=== PATIENT | female | born 1995 | race Caucasian/White ===

== ENCOUNTER → 2024-05-20 | Outpatient (CLI) | payer MEDICAID ==
[2024-05-20 08:11] LABS: Basophils # (auto) 0.1 10 ^3/uL (0-0.2); Basophils % (auto) 0.6 % (0.0-2.0); Eosinophils # (auto) 0.2 10 ^3/uL (0-0.8); Eosinophils % (auto) 1.4 % (0.0-7.0); Hematocrit 41.8 % (36.0-46.0); Lymphocytes # (auto) 3.1 10 ^3/uL (0.4-5.4); Lymphocytes % (auto) 20.9 % (10.0-50.0); Mean Corpuscular Hemoglobin 28.8 pg (28.0-32.0); Mean Corpuscular Hgb Conc. 33.6 g/dL (32.0-36.0); Mean Corpuscular Volume 85.8 fL (80.0-100.0); Monocytes # (auto) 0.5 10 ^3/uL (0-1.3); Monocytes % (auto) 3.1 % (0.0-12.0); Neutrophils # (auto) 10.9 10 ^3/uL (1.6-8.6); Platelet Count (auto) 376 10^3/uL (140-450); Red Blood Cells 4.87 10^6/uL (4.0-5.20); White Blood Cell 14.7 10^3/uL (4.4-10.8)
[2024-05-20 08:33] LABS: Alanine Aminotransferase 18 U/L (7-40); Albumin 4.4 g/dL (3.2-4.8); Alkaline Phosphatase 109 U/L (46-116); Anion Gap 8 (5-15); BUN/Creatinine Ratio 14.1 (10.0-20.0); Blood Urea Nitrogen 10 mg/dL (9-23); Calcium 9.9 mg/dL (8.7-10.4); Carbon Dioxide 26 mmol/L (20-31); Chloride 104 mmol/L (98-107); Potassium 4.2 mmol/L (3.5-5.1); Sodium 138 mmol/L (136-145); Total Protein 7.5 g/dL (5.7-8.2); Triglycerides 112 mg/dL (< 150)
[2024-05-20 08:34] LABS: Bilirubin, Total 0.4 mg/dL (0.2-1.0); Cholesterol 168 mg/dL (< 200); HDL Cholesterol 55 mg/dL (40-59)
[2024-05-20 08:36] LABS: Thyroid Stimulating Hormone 1.3 uIU/mL (0.55-4.78)
[2024-05-20 08:39] LABS: Aspartate Aminotransferase 12 U/L (13-40); Glucose 112 mg/dL (74-106); LDL Cholesterol 109 mg/dL (< 100)
[2024-05-20 09:03] LABS: Beta HCG, Quantitative 86987.4 mIU/mL (1.5-4.2)
[2024-05-20 09:04] LABS: Cannabinoid Screen, Urine Pos (NEGATIVE)
[2024-05-20 09:05] LABS: Amphetamine Screen, Urine Neg (NEGATIVE); Barbiturate Scree,Urine Neg (NEGATIVE); Benzodiazephine Screen, Urine Neg (NEGATIVE); Cocaine Screen, Urine Neg (NEGATIVE); Opiate Scree,Urine Neg (NEGATIVE); Phencyclidine Screen, Urine Neg (NEGATIVE)
[2024-05-21 20:07] LABS: Chlamydia Trachomatis, NAA Negative (Negative); Neisseria gonorrhoeae, NAA Negative (Negative)
== END | disposition home or self-care (01) ==
LOC: LAB 07:31
DX: O23.40 Unspecified infection of urinary tract in pregnancy, unspecified trimester (principal); Z31.430 Encounter of female for testing for genetic disease carrier status for procreative management; Z36.0 Encounter for antenatal screening for chromosomal anomalies; N39.0 Urinary tract infection, site not specified; Z3A.00 Weeks of gestation of pregnancy not specified
CPT/HCPCS: 36415; 80053; 80061; 80307; 84439; 84443; 84702; 85025; 86703; 86762; 86850; 86900; 86901; 87086; 87340; 87902

== ENCOUNTER 2024-09-21 07:56 | Outpatient (CLI) | payer MEDICAID ==
[2024-09-21 08:23] LABS: Hematocrit 36.0 % (36.0-46.0); Hemoglobin 12.4 g/dL (12.2-16.2); Mean Corpuscular Hemoglobin 29.3 pg (28.0-32.0); Mean Corpuscular Volume 85.0 fL (80.0-100.0); Nucleated Red Blood Cells % 0.1 %
== END 2024-09-21 17:00 | disposition home or self-care (01) ==
LOC: LAB 07:56
DX: Z34.80 Encounter for supervision of other normal pregnancy, unspecified trimester (principal); Z3A.00 Weeks of gestation of pregnancy not specified
CPT/HCPCS: 36415; 83036; 85025

== ENCOUNTER 2024-09-28 07:32 | Outpatient (CLI) | payer MEDICAID | END 2024-09-28 17:00 | disposition home or self-care (01) | LOC: LAB 07:32 | DX: Z34.80 Encounter for supervision of other normal pregnancy, unspecified trimester (principal); Z3A.00 Weeks of gestation of pregnancy not specified | CPT/HCPCS: 82951 ==

== ENCOUNTER 2024-11-09 09:30 | Observation (INO) | payer MEDICAID ==
[2024-11-09 10:51] LABS: Hematocrit 37.0 % (36.0-46.0); Hemoglobin 12.4 g/dL (12.2-16.2); Mean Corpuscular Hemoglobin 27.2 pg (28.0-32.0); Mean Corpuscular Volume 80.8 fL (80.0-100.0); Nucleated Red Blood Cells % 0.0 %
[2024-11-09 11:05] LABS: Albumin 3.7 g/dL (3.2-4.8); Anion Gap 11 (5-15); Calcium 9.0 mg/dL (8.7-10.4); Carbon Dioxide 22 mmol/L (20-31); Chloride 107 mmol/L (98-107); Glucose 92 mg/dL (74-106); Potassium 4.0 mmol/L (3.5-5.1); Sodium 140 mmol/L (136-145); Total Protein 6.8 g/dL (5.7-8.2); Uric Acid 5.4 mg/dL (3.1-7.8)
[2024-11-09 11:06] LABS: Alanine Aminotransferase < 9 U/L (7-40); Alkaline Phosphatase 132 U/L (46-116); BUN/Creatinine Ratio 9.4 (10.0-20.0); Bilirubin, Total 0.3 mg/dL (0.2-1.0); Blood Urea Nitrogen < 5 mg/dL (9-23)
[2024-11-09 11:08] LABS: INR 0.97 (0.9-1.15); Partial Thromboplastin Time 27.9 SEC (24.5-34.5); Prothrombin Time 10.3 sec (9.3-11.8)
--- NOTE | 2024-11-09 11:25 | DVH ---
BIOPHYSICAL PROFILE HISTORY: R/O PIH TECHNIQUE: Multiple transabdominal real-time grayscale sonographic images through the gravid uterus of the fetus with duplex Doppler color flow and M-mode spectral analysis FINDINGS: BIOPHYSICAL PROFILE: breathing score: 2 movement score: 2 tone score: 2 Quantitative PEACE score: 2 (PEACE: 13.96 Cm.) Total score: 8 The cervix measures 3.7 cm and appears closed. Single live fetus in cephalic presentation. heart rate 154 beats per minute. Posterior placenta without previa or abruption IMPRESSION: Biophysical profile score: 8
[2024-11-09] MEDS ORDERED: PREN-96 PO (11:40)
[2024-11-09 12:53] LABS: Protein, Urine 26.8 mg/dL (1-14)
[2024-11-09 12:58] LABS: Urine Protein, UAD TRACE (Negative)
--- NOTE | 2024-11-09 13:58 | DVHDS2 ---
Physician Discharge Progress N Final Diagnosis: pih 32 wks Operations or Procedures: Operations or Procedures nst reactive reviwed,jarviso Condition on Discharge: Good Disposition: Home Discharge Instructions: Diet: Regular Activity: Light activity Medications: na Follow Up Care: Specialist: 1w Discharge Statement: "Patient was advised to return to the ER or call 911 if any headaches, dizziness, shortness of breath, chest pain, abdominal pain, bleeding, fevers, or worsening of medical condition. Patient was counseled about treatment plan, medications, possible side effects, patientverbalized understanding. All questions were answered to the best of my ability. This discharge took greater then 30 minutes in planning, reviewing documentation, counseling the patient, and discussing with other team members." Visit Coding OBGYN Date of Service: Nov 09, 2024 Billing Provider: GENESIS ROWE DO FISH AND GAME CLUB MANAGER Common Visit Codes: [id number] OBS CARE (HIGH) FISH AND GAME CLUB MANAGER Procedure Codes: 16701-26- NON-STRESS TEST GENESIS ROWE DO Nov 09, 2024 13:58
== END 2024-11-09 14:29 | disposition home or self-care (01) ==
LOC: LDRP 09:30
PROVIDERS: ADMIT Obstetrics & Gynecology; ATTEND Obstetrics & Gynecology
DX: O13.3 Gestational [pregnancy-induced] hypertension without significant proteinuria, third trimester (principal); Z3A.32 32 weeks gestation of pregnancy; Z98.890 Other specified postprocedural states
CPT/HCPCS: 36415; 59025; 76819; 80053; 81001; 81002; 82570; 84156; 84550; 85025; 85610; 85730; 94760; G0378

== ENCOUNTER 2024-11-15 06:38 | Observation (INO) | payer MEDICAID ==
[~2024-11-15 06:38] MED LIST: PREN-96 PO
--- NOTE | 2024-11-15 09:37 | DVH ---
BIOPHYSICAL PROFILE HISTORY: PIH Comparison Study: US BIOPHYSICAL PROFILE on DOS: 11/09/24 TECHNIQUE: Multiple real-time grayscale sonographic images through the gravid uterus of the fetus wi th duplex Doppler color flow and M-mode spectral analysis FINDINGS: BIOPHYSICAL PROFILE: breathing score: 2 movement score: 2 tone score: 2 Quantitative PEACE score: 2 (PEACE: 15 Cm.) Total score: 8 The cervix is not visualized Single live fetus in cephalic presentation. heart rate 133 beats per minute. Posterior/fundal placenta without previa or abruption IMPRESSION: Biophysical profile score: 8
[2024-11-15 10:28] LABS: Urine Protein, UAD Negative (Negative)
[2024-11-15 10:30] LABS: Protein, Urine 10.8 mg/dL (1-14)
[2024-11-15 10:35] LABS: Protein, Urine 16.2 mg/dL (1-14)
[2024-11-15 10:39] LABS: 24 Hr. Total Protein, Urine 232.2 mg/24 Hr (<149.1); Urine Total Volume, 24 Hours 2150.0 mL
--- NOTE | 2024-11-15 11:23 | DVHDS2 ---
Physician Discharge Progress N Final Diagnosis: testing for PIH/24 hour urine collection Operations or Procedures: Operations or Procedures 29yo IUP@33.3wks, denies GUZMAN/vision changes/RUQ pain VSS, normotensive, see CPN NST reactive FKC/PTL/PreE precautions reviewed Dr. Duarte consulted, agrees with POC. Laboratory Tests Test 11/15/24 09:00 Range/Units Urine Color Light-yellow Yellow Urine Clarity Turbid H Clear Urine pH 6.5 5.0-9.0 Urine Specific [place] 1.016 1.001-1.035 Urine Protein Negative Negative Urine Ketones 1+ H Negative Urine Blood Negative Negative /uL Urine Nitrite Negative Negative Urine Bilirubin Negative Negative Urine Urobilinogen Normal Negative mg/dL Urine Leukocyte Esterase Trace Negative /uL Urine RBC 1 0 - 4 /hpf Urine Microscopic WBC 2 0-5 /HPF Urine Squamous Epithelial Cells Mod <5 /hpf Urine Bacteria Few H None Seen /hpf Urine Mucus Few None Seen Urine Creatinine 77.59 30.0-125.0 mg/dL Urine Total Protein 24 Hour 232.2 <149.1 mg/24 Hr Urine Protein/Creatinine Ratio 0.21 Urine Glucose Normal Normal mg/dL Urine Total Protein 16.2 H 1-14 mg/dL Other Interventions Other Interventions [place] [address] Ph: [phone] DIAGNOSTIC IMAGING Diagnostic Imaging Report : [id number] Signed PATIENT: MADELINE MANSFIELD ACCT: [id number] UNIT: [id number] : 1995 LOC: [facility] ROOM / BED: [facility] / A AGE / SEX: 29 / F ADM STATUS: ADM IN SERVICE 0907 ORDERING PHYSICIAN: BETTY JARAMILLO CNM PROCEDURE(s): BPP - BIOPHYSICAL PROFILE REASON: [facility] ORDER NUMBER(s): [id number], ACCESSION NUMBER(s): [id number] BIOPHYSICAL PROFILE HISTORY: [facility] Comparison Study: US BIOPHYSICAL PROFILE on DOS: 11/09/24 TECHNIQUE: Multiple real-time grayscale sonographic images through the gravid uterus of the fetus with duplex Doppler color flow and M-mode spectral analysis FINDINGS: BIOPHYSICAL PROFILE: breathing score: 2 movement score: 2 tone score: 2 Quantitative PEACE score: 2 (PEACE: 15 Cm.) Total score: 8 The cervix is not visualized Single live fetus in cephalic presentation. heart rate 133 beats per minute. Posterior/fundal placenta without previa or abruption IMPRESSION: Biophysical profile score: 8 ATED BY: JC OCONNELL MD DICTATED DATE/TIME: 11/15/24933 SIGNED BY: JC OCONNELL MD SIGNED DATE/TIME: 11/15/24933 CC: Condition on Discharge: Stable Disposition: Home Discharge Instructions: Diet: Regular Activity: No Restrictions, As Tolerated Follow Up/Referral: Follow up weekly for NST/BPP Medications: see med list Follow Up Care: Specialist: f/u in 1 wk Discharge Statement: "Patient was advised to return to the ER or call 911 if any headaches, dizziness, shortness of breath, chest pain, abdominal pain, bleeding, fevers, or worsening of medical condition. Patient was counseled about treatment plan, medications, possible side effects, patientverbalized understanding. All questions were answered to the best of my ability. This discharge took greater then 30 minutes in planning, reviewing documentation, counseling the patient, and discussing with other team members." Visit Coding OBGYN Date of Service: Nov 15, 2024 Billing Provider: BETTY JARAMILLO CNM CLAMP FORKLIFT OPERATOR Common Visit Codes: 89992-[id number] OBS CARE (HIGH) CLAMP FORKLIFT OPERATOR Procedure Codes: 74256-74- NON-STRESS TEST BETTY JARAMILLO CNM Nov 15, 2024 11:23
== END 2024-11-15 11:28 | disposition home or self-care (01) ==
LOC: LDRP 08:56 → UNDOADMOB 08:56 → LDRP 09:08
PROVIDERS: ADMIT Obstetrics & Gynecology; ATTEND Obstetrics & Gynecology
DX: O13.3 Gestational [pregnancy-induced] hypertension without significant proteinuria, third trimester (principal); Z3A.33 33 weeks gestation of pregnancy; Z98.890 Other specified postprocedural states
CPT/HCPCS: 59025; 76819; 81001; 81002; 82570; 84156; 94760; G0378

== ENCOUNTER 2024-11-22 08:00 | Observation (INO) | payer MEDICAID ==
--- NOTE | 2024-11-22 09:19 | DVH ---
BIOPHYSICAL PROFILE HISTORY: PIH TECHNIQUE: Multiple transabdominal real-time grayscale sonographic images through the gravid uterus of the fetus with duplex Doppler color flow and M-mode spectral analysis FINDINGS: BIOPHYSICAL PROFILE: breathing score: 2 movement score: 2 tone score: 2 Quantitative PEACE score: 2 (PEACE: 15.4 Cm.) Total score: 8 The cervix not well visualized. Single live fetus in cephalic presentation. heart rate 135 beats per minute. Grade 2 posterior placenta without previa or abruption IMPRESSION: Biophysical profile score: 8
--- NOTE | 2024-11-22 10:32 | DVHDS2 ---
Physician Discharge Progress N Final Diagnosis: testing for BP monitoring/PIH previous C/S Operations or Procedures: Operations or Procedures 29yo iup@34.3wks VSS, normotensive, see CPN NST reactive BPP 09/16 fkc/ptl/PreE precautions reviewed Dr. Duarte consulted, plan to f/u in 1wk for NST/BPP Other Interventions Other Interventions [place] [address] Ph: [phone] DIAGNOSTIC IMAGING Diagnostic Imaging Report : [id number] Signed PATIENT: MADELINE MANSFIELD ACCT: [id number] UNIT: [id number] : 1995 LOC: [facility] ROOM / BED: TRIAGE1 / A AGE / SEX: 29 / F ADM STATUS: ADM IN SERVICE 4 ORDERING PHYSICIAN: BETTY JARAMILLO CNM PROCEDURE(s): BPP - BIOPHYSICAL PROFILE REASON: [facility] ORDER NUMBER(s): [id number], ACCESSION NUMBER(s): [id number] BIOPHYSICAL PROFILE HISTORY: PIH TECHNIQUE: Multiple transabdominal real-time grayscale sonographic images through the gravid uterus of the fetus with duplex Doppler color flow and M-mode spectral analysis FINDINGS: BIOPHYSICAL PROFILE: breathing score: 2 movement score: 2 tone score: 2 Quantitative PEACE score: 2 (PEACE: 15.4 Cm.) Total score: 8 The cervix not well visualized. Single live fetus in cephalic presentation. heart rate 135 beats per minute. Grade 2 posterior placenta without previa or abruption IMPRESSION: Biophysical profile score: 8 ATED BY: MIRNA VILLANUEVA MD DICTATED DATE/TIME: 11/22/24916 SIGNED BY: MIRNA VILLANUEVA MD SIGNED DATE/TIME: 11/22/24916 CC: Condition on Discharge: Stable Disposition: Home Discharge Instructions: Diet: Regular Activity: No Restrictions, As Tolerated Follow Up/Referral: Follow up Thursday at 8:00 am for NST/BPP. Medications: see med list Follow Up Care: Specialist: f/u in 1wk for NST/BPP Discharge Statement: "Patient was advised to return to the ER or call 911 if any headaches, dizziness, shortness of breath, chest pain, abdominal pain, bleeding, fevers, or worsening of medical condition. Patient was counseled about treatment plan, medications, possible side effects, patientverbalized understanding. All questions were answered to the best of my ability. This discharge took greater then 30 minutes in planning, reviewing documentation, counseling the patient, and discussing with other team members." Visit Coding OBGYN Date of Service: Nov 22, 2024 Billing Provider: BETTY JARAMILLO CNM MEDICAL RECORDS ASSISTANT Common Visit Codes: [id number] OBS CARE (HIGH) MEDICAL RECORDS ASSISTANT Procedure Codes: 41736-27- NON-STRESS TEST BETTY JARAMILLO CNM Nov 22, 2024 10:32
== END 2024-11-22 10:03 | disposition home or self-care (01) ==
LOC: LDRP 08:00
PROVIDERS: ADMIT Obstetrics & Gynecology; ATTEND Obstetrics & Gynecology
DX: O13.3 Gestational [pregnancy-induced] hypertension without significant proteinuria, third trimester (principal); Z3A.34 34 weeks gestation of pregnancy; Z98.890 Other specified postprocedural states
CPT/HCPCS: 59025; 76819; 81002; 94760; G0378

== ENCOUNTER 2024-11-29 08:01 | Observation (INO) | payer MEDICAID ==
--- NOTE | 2024-11-29 08:53 | DVH ---
CLINICAL HISTORY: -induced hypertension. COMPARISON: US BIOPHYSICAL PROFILE on DOS: 11/22/24, US BIOPHYSICAL PROFILE on DOS: 11/15/24, US BIOPH YSICAL PROFILE on DOS: 11/09/24 TECHNIQUE: biophysical profile was performed. Transabdominal sonographic images of the fetus we re obtained. FINDINGS: The fetus is in cephalic position. heart rate measures 140 BPM. Amniotic fluid index measures 13.6 cm. The placenta is posterior/fundal in position without visualized evidence for previa or abruption. BPP profile is an overall score of 8/8, with 2/2 points for breathing, with at least one episode of breathing over a 30 second duration during a 30 minute observation, 2/2 points for m ovements, with 3 or more discrete body or limb movements, 2/2 points for tone, with one or more episodes of extremity extension with return to flexion, or opening and closing of hand, and 2/ 2 points for amniotic fluid, with at least 1 pocket of amniotic fluid that measures 2 cm in 2 perpend icular planes. IMPRESSION: BPP score of 8/8.
[2024-11-29 09:37] LABS: Nucleated Red Blood Cells % 0.3 %
[2024-11-29 09:42] LABS: Hematocrit 32.1 % (36.0-46.0); Hemoglobin 10.6 g/dL (12.2-16.2); Mean Corpuscular Hemoglobin 25.8 pg (28.0-32.0); Mean Corpuscular Volume 78.1 fL (80.0-100.0)
[2024-11-29 09:49] LABS: Anion Gap 12 (5-15); BUN/Creatinine Ratio 12.5 (10.0-20.0); Carbon Dioxide 20 mmol/L (20-31); INR 0.97 (0.9-1.15); Partial Thromboplastin Time 25.5 SEC (24.5-34.5); Potassium 3.8 mmol/L (3.5-5.1); Prothrombin Time 10.3 sec (9.3-11.8); Sodium 141 mmol/L (136-145); Total Protein 5.8 g/dL (5.7-8.2)
[2024-11-29 09:50] LABS: Alanine Aminotransferase < 9 U/L (7-40); Albumin 3.2 g/dL (3.2-4.8); Alkaline Phosphatase 122 U/L (46-116); Blood Urea Nitrogen 8 mg/dL (9-23); Calcium 8.5 mg/dL (8.7-10.4); Chloride 109 mmol/L (98-107); Glucose 133 mg/dL (74-106)
[2024-11-29 09:51] LABS: Bilirubin, Total 0.3 mg/dL (0.2-1.0)
[2024-11-29 09:58] LABS: Protein, Urine 31.0 mg/dL (1-14)
[2024-11-29 10:01] LABS: Urine Protein, UAD TRACE (Negative)
[2024-11-29 10:24] LABS: Uric Acid 6.6 mg/dL (3.1-7.8)
--- NOTE | 2024-11-29 12:37 | DVHDS2 ---
Physician Discharge Progress N Final Diagnosis: testing for BP monitoring Operations or Procedures: Operations or Procedures 29yo IUP@35.3wks, pt c/p seeing spots and Headache VSS, normotensive, per RN NST reactive per RN BPP 09/16 Tylenol 1000mg PO ordered FKC/PTL/PreE precautions reviewed Dr. Duarte consulted, agrees with POC. Laboratory Tests Test 11/29/24 09:15 Range/Units White Blood Count 8.7 4.4-10.8 10^3/uL Red Blood Count 4.11 4.0-5.20 10^6/uL Hemoglobin 10.6 L 12.2-16.2 g/dL Hematocrit 32.1 L 36.0-46.0 % Mean Corpuscular Volume 78.1 L 80.0-100.0 fL Mean Corpuscular Hemoglobin 25.8 L 28.0-32.0 pg Mean Corpuscular Hemoglobin Concent 33.0 32.0-36.0 g/dL Red Cell Distribution Width 14.5 H 11.8-14.3 % Platelet Count 225 140-450 10^3/uL Mean Platelet Volume 8.6 6.9-10.8 fL Neutrophils (%) (Auto) 70.0 37.0-80.0 % Lymphocytes (%) (Auto) 22.4 10.0-50.0 % Monocytes (%) (Auto) 5.0 0.0-12.0 % Eosinophils (%) (Auto) 2.0 0.0-7.0 % Basophils (%) (Auto) 0.6 0.0-2.0 % Neutrophils # (Auto) 6.1 1.6-8.6 10 ^3/uL Lymphocytes # (Auto) 2.0 0.4-5.4 10 ^3/uL Monocytes # (Auto) 0.4 0-1.3 10 ^3/uL Eosinophils # (Auto) 0.2 0-0.8 10 ^3/uL Basophils # (Auto) 0 0-0.2 10 ^3/uL Nucleated Red Blood Cells 0.3 % Prothrombin Time 10.3 9.3-11.8 sec Prothrombin Time INR 0.97 0.9-1.15 Activated Partial Thromboplast Time 25.5 24.5-34.5 SEC Urine Color Light-yellow Yellow Urine Clarity Turbid H Clear Urine pH 6.5 5.0-9.0 Urine Specific [place] 1.020 1.001-1.035 Urine Protein Trace H Negative Urine Ketones Trace Negative Urine Blood Negative Negative /uL Urine Nitrite Negative Negative Urine Bilirubin Negative Negative Urine Urobilinogen Normal Negative mg/dL Urine Leukocyte Esterase Trace Negative /uL Urine RBC 2 0 - 4 /hpf Urine Microscopic WBC 3 0-5 /HPF Urine Squamous Epithelial Cells Many <5 /hpf Urine Bacteria Few H None Seen /hpf Urine Mucus Few None Seen Urine Creatinine 126.20 H 30.0-125.0 mg/dL Urine Protein/Creatinine Ratio 0.25 Urine Glucose Normal Normal mg/dL Urine Total Protein 31.0 H 1-14 mg/dL Sodium Level 141 136-145 mmol/L Potassium Level 3.8 3.5-5.1 mmol/L Chloride Level 109 H 98-107 mmol/L Carbon Dioxide Level 20 20-31 mmol/L Anion Gap 12 5-15 Blood Urea Nitrogen 8 L 9-23 mg/dL Creatinine 0.64 0.550-1.02 mg/dL Glomerular Filtration Rate Calc 122 >90 mL/min BUN/Creatinine Ratio 12.5 10.0-20.0 Serum Glucose 133 H 74-106 mg/dL Uric Acid 6.6 3.1-7.8 mg/dL Calcium Level 8.5 L 8.7-10.4 mg/dL Total Bilirubin 0.3 0.2-1.0 mg/dL Aspartate Amino Transferase (AST) 14 13-40 U/L Alanine Aminotransferase (ALT) < 9 7-40 U/L Alkaline Phosphatase 122 H 46-116 U/L Total Protein 5.8 5.7-8.2 g/dL Albumin 3.2 3.2-4.8 g/dL Other Interventions Other Interventions [address] [address] Ph: [phone] DIAGNOSTIC IMAGING Diagnostic Imaging Report : [id number] Signed PATIENT: MADELINE MANSFIELD ACCT: [id number] UNIT: [id number] : 1995 LOC: [facility] ROOM / BED: TRIAGE1 / A AGE / SEX: 29 / F ADM STATUS: ADM IN SERVICE 0805 ORDERING PHYSICIAN: BETTY JARAMILLO CNM PROCEDURE(s): BPP - BIOPHYSICAL PROFILE REASON: [facility] ORDER NUMBER(s): [id number], ACCESSION NUMBER(s): [id number] CLINICAL HISTORY: -induced hypertension. COMPARISON: US BIOPHYSICAL PROFILE on DOS: 11/22/24, US BIOPHYSICAL PROFILE on DOS: 11/15/24, US BIOPHYSICAL PROFILE on DOS: 11/09/24 TECHNIQUE: biophysical profile was performed. Transabdominal sonographic images of the fetus were obtained. FINDINGS: The fetus is in cephalic position. heart rate measures 140 BPM. Amniotic fluid index measures 13.6 cm. The placenta is posterior/fundal in position without visualized evidence for previa or abruption. BPP profile is an overall score of 8/8, with 2/2 points for breathing, with at least one episode of breathing over a 30 second duration during a 30 minute observation, 2/2 points for movements, with 3 or more discrete body or limb movements, 2/2 points for tone, with one or more episodes of extremity extension with return to flexion, or opening and closing of hand, and 2/2 points for amniotic fluid, with at least 1 pocket of amniotic fluid that measures 2 cm in 2 perpendicular planes. IMPRESSION: BPP score of 8/8. ATED BY: CORINNE MCCARTNEY DO DICTATED DATE/TIME: 11/29/24 0850 SIGNED BY: CORINNE MCCARTNEY DO SIGNED DATE/TIME: 11/29/24 0850 CC: Condition on Discharge: Stable Disposition: Home Discharge Instructions: Diet: Regular Activity: No Restrictions, As Tolerated Medications: see med list Follow Up Care: Specialist: f/u 1 wk Discharge Statement: "Patient was advised to return to the ER or call 911 if any headaches, dizziness, shortness of breath, chest pain, abdominal pain, bleeding, fevers, or worsening of medical condition. Patient was counseled about treatment plan, medications, possible side effects, patientverbalized understanding. All questions were answered to the best of my ability. This discharge took greater then 30 minutes in planning, reviewing documentation, counseling the patient, and discussing with other team members." Visit Coding OBGYN Date of Service: Nov 29, 2024 Billing Provider: BETTY JARAMILLO CNM CASH MANAGEMENT OFFICER Common Visit Codes: [id number]-[id number] OBS CARE (HIGH) CASH MANAGEMENT OFFICER Procedure Codes: 61851-56- NON-STRESS TEST BETTY JARAMILLO CNM Nov 29, 2024 12:37
== END 2024-11-29 11:16 | disposition home or self-care (01) ==
LOC: LDRP 08:01
PROVIDERS: ADMIT Obstetrics & Gynecology; ATTEND Obstetrics & Gynecology
DX: O13.3 Gestational [pregnancy-induced] hypertension without significant proteinuria, third trimester (principal); O26.893 Other specified pregnancy related conditions, third trimester; R51.9 Headache, unspecified; Z3A.35 35 weeks gestation of pregnancy; Z98.890 Other specified postprocedural states
CPT/HCPCS: 36415; 59025; 76819; 80053; 81001; 81002; 82570; 84156; 84550; 85025; 85610; 85730; 94760; G0378

== ENCOUNTER 2024-12-02 08:05 | Observation (INO) | payer MEDICAID ==
--- NOTE | 2024-12-02 09:45 | DVH ---
BIOPHYSICAL PROFILE HISTORY: PIH TECHNIQUE: Multiple transabdominal real-time grayscale sonographic images through the gravid uterus of the fetus with duplex Doppler color flow and M-mode spectral analysis FINDINGS: BIOPHYSICAL PROFILE: breathing score: 2 movement score: 2 tone score: 2 Quantitative PEACE score: 2 (PEACE: 11.3 Cm.) Total score: 8 The cervix not well visualized. Single live fetus in cephalic presentation. heart rate 140 beats per minute. Grade 2 fundal placenta without previa or abruption IMPRESSION: Biophysical profile score: 8
--- NOTE | 2024-12-02 12:45 | DVHDS2 ---
Physician Discharge Progress N Final Diagnosis: gdm ,pih 35 wks Operations or Procedures: Operations or Procedures nst reactive reviewed,sono Condition on Discharge: Good Disposition: Home Discharge Instructions: Diet: Regular Activity: No Restrictions, As Tolerated Follow Up/Referral: Return with 24 hour urine on Thursday12/04/24 Medications: na Follow Up Care: Specialist: 3d Discharge Statement: "Patient was advised to return to the ER or call 911 if any headaches, dizziness, shortness of breath, chest pain, abdominal pain, bleeding, fevers, or worsening of medical condition. Patient was counseled about treatment plan, medications, possible side effects, patientverbalized understanding. All questions were answered to the best of my ability. This discharge took greater then 30 minutes in planning, reviewing documentation, counseling the patient, and discussing with other team members." Visit Coding OBGYN Date of Service: Dec 02, 2024 Billing Provider: GENESIS ROWE DO CRIPPLE CHASER Common Visit Codes: [id number] OBS CARE (HIGH) CRIPPLE CHASER Procedure Codes: 10425-06- NON-STRESS TEST GENESIS ROWE DO Dec 02, 2024 12:45
== END 2024-12-02 10:48 | disposition home or self-care (01) ==
LOC: LDRP 08:05 → UNDOADMOB 08:05 → LDRP 08:29 → UNDODISOB 10:48
PROVIDERS: ADMIT Obstetrics & Gynecology; ATTEND Obstetrics & Gynecology
DX: O13.3 Gestational [pregnancy-induced] hypertension without significant proteinuria, third trimester (principal); O24.419 Gestational diabetes mellitus in pregnancy, unspecified control; Z3A.35 35 weeks gestation of pregnancy; Z98.890 Other specified postprocedural states
CPT/HCPCS: 59025; 76819; 81002; G0378

== ENCOUNTER 2024-12-04 09:55 | Observation (INO) | payer MEDICAID ==
[2024-12-04 11:13] LABS: Hematocrit 33.8 % (36.0-46.0); Hemoglobin 11.0 g/dL (12.2-16.2); Mean Corpuscular Hemoglobin 25.4 pg (28.0-32.0); Mean Corpuscular Volume 78.2 fL (80.0-100.0); Nucleated Red Blood Cells % 0.6 %
[2024-12-04 11:18] LABS: INR 0.95 (0.9-1.15); Partial Thromboplastin Time 26.8 SEC (24.5-34.5); Prothrombin Time 10.1 sec (9.3-11.8)
[2024-12-04 11:21] LABS: Albumin 3.3 g/dL (3.2-4.8); Anion Gap 10 (5-15); BUN/Creatinine Ratio 10.8 (10.0-20.0); Bilirubin, Total 0.3 mg/dL (0.2-1.0); Calcium 8.9 mg/dL (8.7-10.4); Carbon Dioxide 21 mmol/L (20-31); Potassium 4.1 mmol/L (3.5-5.1); Sodium 139 mmol/L (136-145); Total Protein 6.0 g/dL (5.7-8.2); Uric Acid 6.4 mg/dL (3.1-7.8)
[2024-12-04 11:22] LABS: Alanine Aminotransferase < 9 U/L (7-40); Alkaline Phosphatase 143 U/L (46-116); Blood Urea Nitrogen 7 mg/dL (9-23); Chloride 108 mmol/L (98-107); Glucose 161 mg/dL (74-106)
--- NOTE | 2024-12-04 11:37 | DVH ---
BIOPHYSICAL PROFILE HISTORY: PIH TECHNIQUE: Multiple transabdominal real-time grayscale sonographic images through the gravid uterus of the fetus with duplex Doppler color flow and M-mode spectral analysis FINDINGS: BIOPHYSICAL PROFILE: breathing score: 2 movement score: 2 tone score: 2 Quantitative PEACE score: 2 (PEACE: 10.5cm, MVP: 5.6 cm.) Total score: 8/8 The cervix 136 bpm Single live fetus in cephalic presentation. heart rate 136 beats per minute. Fundal Grade 2 placenta without previa or abruption Single live fetus at 36 weeks 1 day Biophysical profile score 8/8 corresponding to an EWELINA of 12/31/2024. No other information given IMPRESSION: 1. Biophysical profile score: 8/8
[2024-12-04 13:17] LABS: Urine Protein, UAD TRACE (Negative)
[2024-12-04 13:26] LABS: Protein, Urine 31.8 mg/dL (1-14)
[2024-12-04 13:27] LABS: 24 Hr. Total Protein, Urine 381.6 mg/24 Hr (<149.1); Urine Total Volume, 24 Hours 1200.0 mL
--- NOTE | 2024-12-05 12:22 | DVHDS2 ---
Physician Discharge Progress N Final Diagnosis: pih 36wks Operations or Procedures: Operations or Procedures nst reactive reviwed,sono Condition on Discharge: Good Disposition: Home Discharge Instructions: Diet: Regular Activity: No Restrictions, As Tolerated Medications: na Follow Up Care: Specialist: 2d Discharge Statement: "Patient was advised to return to the ER or call 911 if any headaches, dizziness, shortness of breath, chest pain, abdominal pain, bleeding, fevers, or worsening of medical condition. Patient was counseled about treatment plan, medications, possible side effects, patientverbalized understanding. All questions were answered to the best of my ability. This discharge took greater then 30 minutes in planning, reviewing documentat ion, counseling the patient, and discussing with other team members." Visit Coding OBGYN Date of Service: Dec 04, 2024 Billing Provider: GENESIS ROWE DO PRINCIPAL SECRETARY Common Visit Codes: [id number] OBS CARE (HIGH) PRINCIPAL SECRETARY Procedure Codes: 92001-51- NON-STRESS TEST GENESIS ROWE DO Dec 05, 2024 12:22
== END 2024-12-04 12:18 | disposition home or self-care (01) ==
LOC: LDRP 09:55
PROVIDERS: ADMIT Obstetrics & Gynecology; ATTEND Obstetrics & Gynecology
DX: O13.3 Gestational [pregnancy-induced] hypertension without significant proteinuria, third trimester (principal); Z3A.36 36 weeks gestation of pregnancy; Z98.890 Other specified postprocedural states
CPT/HCPCS: 36415; 59025; 76819; 80053; 81001; 81002; 82570; 84156; 84550; 85025; 85610; 85730; 94760; G0378

== ENCOUNTER 2024-12-07 06:14 | Observation (INO) | payer MEDICAID ==
--- NOTE | 2024-12-09 10:02 | DVH ---
BIOPHYSICAL PROFILE HISTORY: PIH TECHNIQUE: Multiple transabdominal real-time grayscale sonographic images through the gravid uterus o f the fetus with duplex doppler color flow and M-mode spectral analysis FINDINGS: BIOPHYSICAL PROFILE: breathing score: 2 movement score: 2 tone score: 2 Quantitative PEACE score: 2 (PEACE: 15.4 cm.) Total score: 8/8 Single live fetus in cephalic presentation. heart rate 146 beats per minute. Cephalic placenta without previa or abruption Biophysical profile score 8/8 corresponding to an EWELINA of 12/31/24 IMPRESSION: Biophysical profile score: 8/8
[2024-12-09 11:02] LABS: Hematocrit 33.3 % (36.0-46.0); Hemoglobin 10.9 g/dL (12.2-16.2); Mean Corpuscular Hemoglobin 24.9 pg (28.0-32.0); Mean Corpuscular Volume 76.4 fL (80.0-100.0); Nucleated Red Blood Cells % 0.7 %
[2024-12-09 11:13] LABS: Urine Protein, UAD TRACE (Negative)
[2024-12-09 11:15] LABS: INR 0.94 (0.9-1.15); Partial Thromboplastin Time 26.7 SEC (24.5-34.5); Prothrombin Time 10.0 sec (9.3-11.8)
[2024-12-09 11:20] LABS: Albumin 3.3 g/dL (3.2-4.8); Anion Gap 10 (5-15); BUN/Creatinine Ratio 14.3 (10.0-20.0); Calcium 8.9 mg/dL (8.7-10.4); Carbon Dioxide 20 mmol/L (20-31); Potassium 3.9 mmol/L (3.5-5.1); Sodium 140 mmol/L (136-145); Total Protein 5.9 g/dL (5.7-8.2); Uric Acid 6.5 mg/dL (3.1-7.8)
[2024-12-09 11:21] LABS: Alanine Aminotransferase < 9 U/L (7-40); Alkaline Phosphatase 152 U/L (46-116); Bilirubin, Total 0.3 mg/dL (0.2-1.0); Blood Urea Nitrogen 8 mg/dL (9-23); Chloride 110 mmol/L (98-107); Glucose 154 mg/dL (74-106)
[2024-12-09 11:23] LABS: Protein, Urine 45.6 mg/dL (1-14)
--- NOTE | 2024-12-09 11:45 | DVHDS2 ---
Physician Discharge Progress N Final Diagnosis: pih ,previous [id number] Operations or Procedures: Operations or Procedures nst reactive anthony arcos Consultations: Consultations pt to have rcs on thursday with dr larkin Condition on Discharge: Good Disposition: Home Discharge Instructions: Diet: Cardiac 2g Na,low cholest (2 gm sodium, low cholesterol) Activity: Light activity Medications: na Follow Up Care: Specialist: 2d for cs Discharge Statement: "Patient was advised to return to the ER or call 911 if any headaches, dizziness, shortness of breath, chest pain, abdominal pain, bleeding, fevers, or worsening of medical condition. Patient was counseled about treatment plan, medications, possible side effects, patientverbalized understanding. All questions were answered to the best of my ability. This discharge took greater then 30 minutes in planning, reviewing documentation, counseling the patient, and discussing with other team members." Visit Coding OBGYN Date of Service: Dec 09, 2024 Billing Provider: GENESIS ROWE DO VEHICLE DELIVERY WORKER Common Visit Codes: [id number] OBS CARE (HIGH) VEHICLE DELIVERY WORKER Procedure Codes: 87976-83- NON-STRESS TEST GENESIS ROWE DO Dec 09, 2024 11:39
== END 2024-12-09 12:31 | disposition home or self-care (01) ==
LOC: UNDOADMOB 12-09 08:56 → LDRP 12-09 08:56 → UNDODISOB 12-09 12:31
PROVIDERS: ADMIT Obstetrics & Gynecology; ATTEND Obstetrics & Gynecology
DX: O13.3 Gestational [pregnancy-induced] hypertension without significant proteinuria, third trimester (principal); Z3A.36 36 weeks gestation of pregnancy; Z98.890 Other specified postprocedural states
CPT/HCPCS: 36415; 59025; 76819; 80053; 81001; 81002; 82570; 84156; 84550; 85025; 85610; 85730; 94760; G0378

== ENCOUNTER 2024-12-11 04:10 | Inpatient (IN) | payer MEDICAID ==
[2024-12-09 13:39] LABS: Hematocrit 34.5 % (36.0-46.0); Hemoglobin 11.1 g/dL (12.2-16.2); Mean Corpuscular Hemoglobin 24.8 pg (28.0-32.0); Mean Corpuscular Volume 77.1 fL (80.0-100.0); Nucleated Red Blood Cells % 0.9 %
[2024-12-09 13:53] LABS: Albumin 3.5 g/dL (3.2-4.8); Anion Gap 11 (5-15); BUN/Creatinine Ratio 16.0 (10.0-20.0); Calcium 9.0 mg/dL (8.7-10.4); Potassium 3.8 mmol/L (3.5-5.1); Sodium 139 mmol/L (136-145); Total Protein 6.3 g/dL (5.7-8.2)
[2024-12-09 13:54] LABS: INR 0.94 (0.9-1.15); Partial Thromboplastin Time 27.1 SEC (24.5-34.5); Prothrombin Time 10.0 sec (9.3-11.8)
[2024-12-09 13:55] LABS: Alanine Aminotransferase < 9 U/L (7-40); Alkaline Phosphatase 160 U/L (46-116); Bilirubin, Total 0.3 mg/dL (0.2-1.0); Blood Urea Nitrogen 8 mg/dL (9-23); Carbon Dioxide 19 mmol/L (20-31); Chloride 109 mmol/L (98-107); Glucose 113 mg/dL (74-106)
[2024-12-11] VITALS (18 sets, daily range): BP systolic 111–150; BP diastolic 56–89; PULSE 73–102; RESP 14–20; TEMP 98.3–98.6; O2SAT 79–100
[~2024-12-11] VITALS: Ht 154.9 cm; Wt 99.8 kg
[2024-12-11] MEDS: LACTATED RINGER'S 1,000 ML IV ONE (04:45)
[2024-12-11 06:49] LABS: Cannabinoid Screen, Urine Neg (NEGATIVE)
[2024-12-11 07:00] LABS: Amphetamine Screen, Urine Neg (NEGATIVE); Barbiturate Scree,Urine Neg (NEGATIVE); Benzodiazephine Screen, Urine Neg (NEGATIVE); Cocaine Screen, Urine Neg (NEGATIVE); Opiate Scree,Urine Neg (NEGATIVE); Phencyclidine Screen, Urine Neg (NEGATIVE)
--- NOTE | 2024-12-11 07:08 | DVHHP2 ---
OB CC & HPI Date Date of Admission: Dec 11, 2024 Patient Identification: : 5 Para: 2 EDC: Dec 29, 2024 EGA: 37.3 Chief Complaints: Reason for admission: section History of Present Complaints Early Term IUP 37+ wk, Scheduled repeat C/S per Dr Duarte due to pre-eclampsia without severe features. Patient asymptomatic Hx of C/S x 1, Obesity. Past Medical History Cardiac: No pertinent Hx Pulmonary: No pertinent Hx Central Nervous System: No pertinent Hx GI: No pertinent Hx Hemotology/Oncology: No pertinent Hx Hepatobiliary: No pertinent Hx Psychiatric: No pertinent Hx Musculoskeletal: No pertinent Hx Rheumotologic: No pertinent Hx Infectious Disease: No peritnent Hx ENT: No pertinent Hx Renal/: No pertinent Hx Endocrine: No pertinent Hx Dermatology: No pertinent Hx Past Surgical History: OB History OB History Care: Good Care Obstetrical Complications: Pre-eclampsia Medical Complications: None Allergies: Coded Allergies: NO KNOWN ALLERGIES (Unverified , 11/15/24) Home Meds Reported Medications Vit W/ Ferrous Fumara ( One Daily) Daily Tab, 1 TAB PO DAILY, #90 TAB 3 Refills 11/09/24 Current Medications Current Medications Medications (Trade) Dose Ordered Sig/Usman Route PRN Reason Start Time Stop Time Status Last Admin Lactated Ringer's 1,000 ml @ 125 mls/hr Q8H IV 12/11/24 04:45 Family & Social History Family/Social History Blood Type: O+ Rubella: immune RPR/VDRL: Negative GBS Status: Negative HBsAG: Negative Review of Systems Constitutional: No symptom reported Ears, Nose, & Throat: No symptom reported Eyes: No symptom reported Pulmonary/Respiratory: No symptom reported Cardiovascular: No symptom reported Gastrointestinal: No symptom reported Genitourinary: No symptom reported Musculoskeletal: No symptom reported Skin: No symptom reported Psychiatric: No symptom reported Endocrine: No symptom reported Hemotologic/Lymphatic: No symptom reported OB Admission Exam Physical Exam HEENT: NCAT Heart: Rhythm Normal Lungs: Clear Abdomen: Gravid Extremities: Normal Reflexes: Normal Pelvic Exam: Deferred Heart Rate: 140's Accelerations: Accelerations Present Decelerations: No Decelerations Short Term Variability: Present Senior Living Variability: Average (6-25) Contractions on Admission: None OB Plan Plan Admitting Diagnosis: Early Term 37+ wk, Mild Pre-eclampsia Hx of C/S x 1, desires repeat Section Plan: Section Other Plan: Admit for planned, medically indicated early term delivery by repeat C/Section due to pre-eclampsia R/B/A of surgery d/w patient and informed consent obtained. Visit Coding OBGYN Date of Service: Dec 11, 2024 Billing Provider: EVELYN LOVE DO BREWERY TECHNICIAN Common Visit Codes: [id number] INP/OBS CARE (HIGH) EVELYN LOVE DO Dec 11, 2024 07:08
[2024-12-11 07:23] LABS: Urine Protein, UAD 2+ (Negative)
[2024-12-11] MEDS: ceFAZolin 2 GM/D5W50ml 50 ML IV ONE (07:30)
[2024-12-11] MEDS: FAMOTIDINE (10MG/ML) 2ML VL IV ONE (08:24)
[2024-12-11] MEDS ORDERED: MORPHINE SULF PF 5 MG/10 ML VIAL ONE (08:26)
[2024-12-11] MEDS ORDERED: fentaNYL CITRATE 100 MCG/2 ML VL ONE (08:26)
[2024-12-11] MEDS ORDERED: GLYCOPYRROLATE 0.2 MG/ML 1ML VIAL ONE (08:28)
[2024-12-11] MEDS ORDERED: BUPIVACAINE/DEXTROSE MPF 0.75% 2 ML AMP IT ONE (08:28)
[2024-12-11] MEDS ORDERED: ONDANSETRON HCL 4 MG/2 ML VIAL ONE (08:28)
[2024-12-11] MEDS ORDERED: KETOROLAC TROMETH 30 MG/ML 1ML VIAL ONE (08:28)
--- NOTE | 2024-12-11 09:03 | DVHOP2 ---
Operative Report - 2 Report Details Date: 12/11/24 Preop Diagnosis: * Early term gestation 37 weeks 3 days. * Previous section x 1. * Preeclampsia without severe features. * Class III Obesity BMI > 40 Postop Diagnosis: * Early term gestation 37 weeks 3 days. * Previous section x 1. * Preeclampsia without severe features. * Class III Obesity BMI > 40 Surgeon: Sinan Love DO Door Assembler: Mae Loza MD Anesthesiologist: Marie Hawk MD Anesthesia: Regional Consent: The patient was informed of the risks and benefits of the procedure. These include but are not limited to complications of anesthesia, postoperative infection, damage to blood vessels, nerves and bowel. bladder. Complications such as deep venous thrombosis, pulmonary embolism and possible . Complications: None Estimated Blood Loss: 700 mL Findings: Findings: Viable [male/female] infant in cephalic presentation. Apgars and . Clear amniotic fluid. Intact placenta, three vessel cord. Normal uterus, fallopian tubes and ovaries bilaterally. Indications for Surgery: Prior C/S x 1, Early Term 37+ wk Pre-Eclampsia w/out severe features Name of Procedure Performed Repeat low transv section via pfannensteil incision Procedure Details Procedure Details: DATE OF SURGERY: 12/11/2024 PREOPERATIVE DIAGNOSES: * Early term gestation 37 weeks 3 days. * Previous section x 1. * Preeclampsia without severe features. * Class III Obesity BMI > 40 FINAL DIAGNOSES: * Early term gestation 37 weeks 3 days. * Previous section x 1. * Preeclampsia without severe features. * Class III Obesity BMI > 40 * Adhesions. SURGEON: Sinan Love DO VP CLINICAL RESEARCH: Mae Loza MD, PGY-1, residential subcontractor. PROCEDURE PERFORMED: Repeat Low Transverse Section via Pfannenstiel Incision TYPE OF ANESTHESIA: Spinal. ANESTHESIOLOGIST: Marie Hawk MD DESCRIPTION OF FINDINGS: Delivery of a liveborn female , cephalic presentation, occiput anterior, clear amniotic fluid. scores are 8 and 8. Weight 8 pounds 4 ounces. Two-layer uterine closure. Omental adhesions to the anterior abdominal wall. TECHNICAL PROCEDURE: After informed consent was obtained, the patient was taken to the operating room where her spinal anesthesia was found to be adequate. The patient was placed in the supine position with slight leftward tilt. A Pfannenstiel skin incision was made through the prior scar. The incision developed sharply to the underlying layer of fascia. The rectus fascia was sharply and bluntly dissected off the rectus muscles. Blunt entry into the peritoneal cavity was performed. Upon entry into the peritoneal cavity, dense adhesions were encountered of the omentum and peritoneum adherent to the abdominal wall. Adhesiolysis by sharp dissection was used to free these adhesions. The Raphael O retractor was placed into the incision. Using a second scalpel, the lower uterine segment was incised in a low transverse fashion. The amniotic fluid membranes were ruptured. The fluid was clear. The baby was delivered atraumatically. After delivery of the , the nose and mouth were thoroughly suctioned. The cord was clamped and cut after 60 seconds and the baby handed off to waiting pediatric team. Cord blood was obtained. The placenta was spontaneously delivered. The uterus was exteriorized and cleared of all clots and debris using moist laparotomy sponges. The uterine incision was repaired in 2 layers using 0 Stratafix spiral PDS. Excellent tissue approximation and hemostasis was obtained. The cul-de-sac and paracolic gutters were cleared of all clots and debris. All instruments were removed from the patient's abdomen. The lap counts were correct. At this point, the rectus fascia was closed using #1 PDS in continuous running fashion with good tissue approximation. The subcutaneous tissue was irrigated. Bleeding points were controlled with cautery. The subcutaneous tissue was approximated using 2-0 plain gut. The skin was closed in subcuticular fashion using 3-0 Monocryl, Stratafix . A thin layer of Dermabond was placed over the incision. Once the Dermabond dried, Sylke sterile dressing was placed over the incision. The patient tolerated the procedure well. Sponge, lap, and needle counts were correct x 4. INTRAOPERATIVE COMPLICATIONS: None. ESTIMATED BLOOD LOSS: 700 mL. POSTOPERATIVE CONDITION: Stable. SPECIMENS: Cord blood, placenta. MEDICATIONS: Ancef 2 g, IV Pitocin. Sinan Love DO Specimen: Cord blood,placenta Condition Stable Disposition Still a Patient Visit Coding OBGYN Date of Service: Dec 11, 2024 Billing Provider: SINAN LOVE DO PRECISION GRINDER EXTERNAL Common Visit Codes: PROCEDURE ONLY PRECISION GRINDER EXTERNAL Procedure Codes: [id number] OB CARE, DEL SINAN LOVE DO Dec 11, 2024 09:03
[2024-12-11] MEDS ORDERED: ONDANSETRON HCL 4 MG/2 ML VIAL IV PRN (09:30)
[2024-12-11] MEDS ORDERED: diphenhydrAMINE HCL 50 MG/1 ML VL IV PRN (09:30)
[2024-12-11] MEDS ORDERED: NALOXONE HCL 0.4 MG/ML VIAL IV PRN (09:30)
[2024-12-11] MEDS ORDERED: KETOROLAC TROMETH 30 MG/ML 1ML VIAL IV PRN (09:30)
[2024-12-11] MEDS ORDERED: IBUP-1456 PO (09:51)
[2024-12-11] MEDS ORDERED: HYDR-4902 PO (09:51)
[2024-12-11] MEDS: LACTATED RINGER'S 1,000 ML IV SCH (11:39)
[2024-12-11 13:03] LABS: Hematocrit 30.7 % (36.0-46.0); Hemoglobin 9.9 g/dL (12.2-16.2)
[2024-12-11 13:05] LABS: Mean Corpuscular Hemoglobin 24.8 pg (28.0-32.0); Mean Corpuscular Volume 77.1 fL (80.0-100.0); Nucleated Red Blood Cells % 0.3 %
[2024-12-11 13:19] LABS: Anion Gap 9 (5-15); BUN/Creatinine Ratio 11.6 (10.0-20.0); Bilirubin, Total 0.4 mg/dL (0.2-1.0); Carbon Dioxide 22 mmol/L (20-31); Potassium 4.8 mmol/L (3.5-5.1); Sodium 140 mmol/L (136-145)
[2024-12-11 13:20] LABS: Alanine Aminotransferase < 9 U/L (7-40); Albumin 2.8 g/dL (3.2-4.8); Alkaline Phosphatase 135 U/L (46-116); Blood Urea Nitrogen 8 mg/dL (9-23); Calcium 8.4 mg/dL (8.7-10.4); Chloride 109 mmol/L (98-107); Glucose 62 mg/dL (74-106); Total Protein 5.2 g/dL (5.7-8.2)
[2024-12-11 13:31] LABS: Urine Protein, UAD 1+ (Negative)
--- NOTE | 2024-12-11 16:12 | DVHPN2 ---
Progress Note - Dictate Chief Complaints POD#0 s/p Repeat C/S at 37 wk due to Pre eclampsia w/out severe features Intraop EBL 700ml Urine output decreased approx 25mL x last 2-4 hrs. Minimal response to 1L bolus of LR Labs reviewed, FeNa < 1%, GFR with BUN/Cr WNL. UA shows numerous RBC + Exam: Patient does not appear dehydrated , lungs are clear, abd not distended. Ferreira flushed and not obstructed Likely vasospasm from pre-eclampsia, pre-renal oliguria vital signs Vital Sign Date Time Temp Pulse Resp B/P (MAP) Pulse Ox O2 Delivery O2 Flow Rate FiO2 12/11/24 12:00 91 20 134/89 (104) 96 12/11/24 10:00 Room Air 12/11/24 09:50 98.6 98.6 medications Current Medications Medications Dose Ordered Sig/Usman Route Start Time Stop Time Status Last Admin Dose Admin Lactated Ringer's 1,000 ml @ 125 mls/hr Q8H IV 12/11/24 04:45 12/11/24 13:04 125 MLS/HR Diphenhydramine HCl 25 mg Q4HP PRN IV 12/11/24 09:30 Ondansetron HCl 4 mg Q4HP PRN IV 12/11/24 09:30 Dexamethasone Sodium Phosphate 10 mg ONCE PRN IV 12/11/24 09:30 Acetaminophen 1,000 mg Q8HR PRN IV 12/11/24 09:30 Cefazolin Sodium 50 ml @ 100 mls/hr Q8H IV 12/11/24 16:00 12/12/24 08:29 Physical Alert, NAD Gen: Edema of face, hands present Abd: soft, Non distended, Appropriately tender at incision site, incision dry Ext: 3+ pitting edema Neuro: Grossly WNL Pulm Clear Studies Laboratory Tests 12/11/24 12:50 Test 12/11/24 12:50 Range/Units Serum Glucose 62 L 74-106 mg/dL Assessment/Plan POD#0 s/p repeat C/Section at 37 wk Pre-eclampsia Oliguria post op with FeNa < 1% suggestive of pre renal etiology Plan: 1. Furosemide 20mg IV x 1 dose monitor response as patient may be slightly fluid overloaded from IV fluids given in surgery and post op, at risk for pulm edema 2. Monitor urine output and serum BUN/Cr, GFR. 3. Will obtain hospitalist consult to co-manage 4. Small fluid bolus 250-500mL as needed 5. Hold Pitocin, NSAIDS EVELYN LOVE DO Dec 11, 2024 16:12
[2024-12-11] MEDS: ceFAZolin 1GM/50ML 50 ML IV SCH (16:29)
[2024-12-11] MEDS: FUROSEMIDE 20 MG/2 ML VIAL IV ONE (16:32)
[2024-12-11] MEDS: ACETAMINOPHEN IV 1000 MG/100ML (10MG/ML) IV PRN (19:25)
[2024-12-12] VITALS (16 sets, daily range): BP systolic 109–139; BP diastolic 57–94; PULSE 79–100; RESP 16–19; TEMP 97.7–98.5; O2SAT 95–100
--- NOTE | 2024-12-12 02:34 | DVHPN2 ---
Progress Note Date Seen: Dec 12, 2024 Subjective POD#1 s/p repeat C/S at early Term due to pre-eclampsia w/out severe features Had post op oliguria, now resolved Pain controlled. mild lochia. + flatus vital signs Vital Sign Date Time Temp Pulse Resp B/P (MAP) Pulse Ox O2 Delivery O2 Flow Rate FiO2 12/12/24 01:00 89 16 118/65 (82) 98 12/11/24 18:30 98.3 98.3 12/11/24 18:30 Room Air Total Intake and Output 12/11/24 12/11/24 12/12/24 15:00 23:00 07:00 Output Total 145 ml 1780 ml 400 ml Balance -145 ml -1780 ml -400 ml medications Current Medications Medications Dose Ordered Sig/Usman Route Start Time Stop Time Status Last Admin Dose Admin Lactated Ringer's 1,000 ml @ 125 mls/hr Q8H IV 12/11/24 04:45 12/11/24 18:42 125 MLS/HR Diphenhydramine HCl 25 mg Q4HP PRN IV 12/11/24 09:30 Ondansetron HCl 4 mg Q4HP PRN IV 12/11/24 09:30 Dexamethasone Sodium Phosphate 10 mg ONCE PRN IV 12/11/24 09:30 Acetaminophen 1,000 mg Q8HR PRN IV 12/11/24 09:30 12/11/24 19:25 1,000 MG Cefazolin Sodium 50 ml @ 100 mls/hr Q8H IV 12/11/24 16:00 12/12/24 08:29 12/12/24 00:28 100 MLS/HR laboratory and microbiology Laboratory Tests 12/11/24 12:50 Test 12/11/24 12:50 Range/Units Serum Glucose 62 L 74-106 mg/dL Objective O: AFVSS Chest: heart and lung sounds normal. Abd soft, non-tender, fundus firm, BS, no rebound or guarding, Incision - dressing and incision clean, dry, intact Ext Neg Homans, Non-tender, edema Lochia - minimal Labs Pending Assessment/Plan POD#1 s/p repeat C/S at 37+ wk Pre-eclampsia w/out severe features Postop prerenal oliguria, resolving plan: Continue supportive care; check repeat CBC, electrolytes, BUN/cr this morning BP's normal, continue to observe Pain mgmt Ambulate Reg diet Plan discussed with: Patient Visit Coding OBGYN Date of Service: Dec 12, 2024 Billing Provider: EVELYN LOVE DO HEALTH CARE LIAISON Common Visit Codes: [id number] INP/OBS CARE(HIGH) EVELYN LOVE DO Dec 12, 2024 02:34
[2024-12-12 04:02] LABS: Hematocrit 28.0 % (36.0-46.0); Hemoglobin 9.1 g/dL (12.2-16.2); Mean Corpuscular Hemoglobin 25.1 pg (28.0-32.0); Mean Corpuscular Volume 76.9 fL (80.0-100.0); Nucleated Red Blood Cells % 0.3 %
[2024-12-12 04:10] LABS: Anion Gap 6 (5-15); BUN/Creatinine Ratio 14.1 (10.0-20.0); Blood Urea Nitrogen 10 mg/dL (9-23); Carbon Dioxide 25 mmol/L (20-31); Chloride 107 mmol/L (98-107); Potassium 4.5 mmol/L (3.5-5.1); Sodium 138 mmol/L (136-145)
[2024-12-12 04:11] LABS: Alanine Aminotransferase < 9 U/L (7-40); Albumin 2.7 g/dL (3.2-4.8); Alkaline Phosphatase 127 U/L (46-116); Bilirubin, Total 0.3 mg/dL (0.2-1.0); Calcium 8.4 mg/dL (8.7-10.4); Glucose 73 mg/dL (74-106); Total Protein 5.1 g/dL (5.7-8.2)
[2024-12-12] MEDS: KETOROLAC TROMETH 30 MG/ML 1ML VIAL IV ONE (05:08)
[2024-12-12] MEDS ORDERED: HYDROcodone-ACET 5/325MG TAB PO PRN (07:00)
[2024-12-12] MEDS: HYDROcodone-ACET 5/325MG TAB PO PRN (09:08)
[2024-12-12] MEDS: DOCUSATE SOD 100 MG CAP PO SCH (09:43)
[2024-12-12] MEDS: SIMETHICONE 80 MG CHEWABLE TABLET PO SCH (12:00)
[2024-12-12] MEDS: IBUPROFEN 800 MG TAB PO PRN (13:34)
[2024-12-12] MEDS: FUROSEMIDE 20 MG/2 ML VIAL IV SCH (17:37)
[2024-12-13 03:00] VITALS: BP 53/94; PULSE 83; RESP 15; TEMP 97.8; O2SAT 96
--- NOTE | 2024-12-13 06:26 | DVHDS2 ---
Discharge Summary Date of Admission Dec 11, 2024 at 04:10 Date of Discharge: Dec 13, 2024 Admitting Diagnosis Patient was here for repeat -section liver to had girl no issues Wounds: Clean dry and intact Labs/Diagnostic Data: Laboratory Results Test 12/12/24 03:34 12/11/24 13:00 12/11/24 12:50 12/09/24 12:28 White Blood Count 10.1 10^3/uL (4.4-10.8) Red Blood Count 3.64 10^6/uL (4.0-5.20) Hemoglobin 9.1 g/dL (12.2-16.2) Hematocrit 28.0 % (36.0-46.0) Mean Corpuscular Volume 76.9 fL (80.0-100.0) Mean Corpuscular Hemoglobin 25.1 pg (28.0-32.0) Mean Corpuscular Hemoglobin Concent 32.6 g/dL (32.0-36.0) Red Cell Distribution Width 15.3 % (11.8-14.3) Platelet Count 219 10^3/uL (140-450) Mean Platelet Volume 8.6 fL (6.9-10.8) Neutrophils (%) (Auto) 76.2 % (37.0-80.0) Lymphocytes (%) (Auto) 15.8 % (10.0-50.0) Monocytes (%) (Auto) 5.4 % (0.0-12.0) Eosinophils (%) (Auto) 1.9 % (0.0-7.0) Basophils (%) (Auto) 0.7 % (0.0-2.0) Neutrophils # (Auto) 7.7 10 ^3/uL (1.6-8.6) Lymphocytes # (Auto) 1.6 10 ^3/uL (0.4-5.4) Monocytes # (Auto) 0.5 10 ^3/uL (0-1.3) Eosinophils # (Auto) 0.2 10 ^3/uL (0-0.8) Basophils # (Auto) 0.1 10 ^3/uL (0-0.2) Nucleated Red Blood Cells 0.3 % Sodium Level 138 mmol/L (136-145) Potassium Level 4.5 mmol/L (3.5-5.1) Chloride Level 107 mmol/L (98-107) Carbon Dioxide Level 25 mmol/L (20-31) Anion Gap 6 (5-15) Blood Urea Nitrogen 10 mg/dL (9-23) Creatinine 0.71 mg/dL (0.550-1.02) Glomerular Filtration Rate Calc 117 mL/min (>90) BUN/Creatinine Ratio 14.1 (10.0-20.0) Serum Glucose 73 mg/dL (74-106) Calcium Level 8.4 mg/dL (8.7-10.4) Total Bilirubin 0.3 mg/dL (0.2-1.0) Aspartate Amino Transferase (AST) 19 U/L (13-40) Alanine Aminotransferase (ALT) < 9 U/L (7-40) Alkaline Phosphatase 127 U/L (46-116) Total Protein 5.1 g/dL (5.7-8.2) Albumin 2.7 g/dL (3.2-4.8) Urine Color Yellow (Yellow) Urine Clarity Cloudy (Clear) Urine pH 6.5 (5.0-9.0) Urine Specific Basco 1.037 (1.001-1.035) Urine Protein 1+ (Negative) Urine Ketones 1+ (Negative) Urine Blood 3+ /uL (Negative) Urine Nitrite Negative (Negative) Urine Bilirubin Negative (Negative) Urine Urobilinogen Normal mg/dL (Negative) Urine Leukocyte Esterase Negative /uL (Negative) Urine RBC 902 /hpf (0 - 4) Urine Microscopic WBC 4 /HPF (0-5) Urine Squamous Epithelial Cells Few /hpf (<5) Urine Bacteria Few /hpf (None Seen) Urine Mucus Few (None Seen) Urine Creatinine 257.41 mg/dL (30.0-125.0) Urine Sodium 130 mmol/L (40-220) Urine Glucose Normal mg/dL (Normal) Hepatitis C Antibody Negative (Negative) Prothrombin Time 10.0 sec (9.3-11.8) Prothrombin Time INR 0.94 (0.9-1.15) Activated Partial Thromboplast Time 27.1 SEC (24.5-34.5) Treponema pallidum Antibody Non-reactive (Negative) Test 12/09/24 04:20 Urine Opiates Screen Neg (NEGATIVE) Urine Fentanyl Screen Neg (NEGATIVE) Urine Barbiturates Screen Neg (NEGATIVE) Urine Phencyclidine Screen Neg (NEGATIVE) Urine Amphetamines Screen Neg (NEGATIVE) Urine Benzodiazepines Screen Neg (NEGATIVE) Urine Cocaine Screen Neg (NEGATIVE) Urine Cannabinoids Screen Neg (NEGATIVE) Other Laboratory Tests 12/12/24 03:34 Brief Hx & Hospital Course: This had cesareans sections no intraop and postop sequela stable for discharge home on postop day 2 Consults/Reason for consult None Operations or Procedures Repeat low transverse Condition at Discharge: Stable Final Diagnosis/Problems List * Early term gestation 37 weeks 3 days. * Previous section x 1. * Preeclampsia without severe features. * Class III Obesity BMI > 40 Discharge Disposition: Home Discharge Instruct/Medications Diet: Regular Activity: Light activity (Pelvic rest 6) Follow Up/Referral: Wound check 2 weeks or PRN primary Ob physician Medications: Sent to pharmacy Scheduled Vit W/ Ferrous Fumara ( One Daily), 1 TAB PO DAILY, (Reported) Scheduled PRN Hydrocodone-Acetaminophen (Hydrocodone Bitartrate/AC 5-325 mg), 1 TAB PO Q6HPRN PRN Ibuprofen (Ibuprofen), 800 MG PO Q8HP PRN Discharge Statement: "Patient was advised to return to the ER or call 911 if any headaches, dizziness, shortness of breath, chest pain, abdominal pain, bleeding, fevers, or worsening of medical condition. Patient was counseled about treatment plan, medications, possible side effects, patientverbalized understanding. All questions were answered to the best of my ability. This discharge took greater then 30 minutes in planning, reviewing documentation, counseling the patient, and discussing with other team members." ASSESSMENT ASSESSMENT Assessment * Early term gestation 37 weeks 3 days. * Previous section x 1. * Preeclampsia without severe features. * Class III Obesity BMI > 40 Visit Coding OBGYN Date of Service: Dec 13, 2024 Billing Provider: YSABEL MICHELLE DO MARKER HAND Common Visit Codes: [id number] INP/OBS CARE(HIGH), 06616-EQG/OBS SAME DATE (LOW), 17960-BPX/OBS SAME DATE (MOD) MARKER HAND Procedure Codes: [id number] OB CARE, DEL YSABEL MICHELLE DO Dec 13, 2024 06:26
[2024-12-13 07:30] VITALS: BP 131/79; PULSE 99; RESP 18; TEMP 98.1; O2SAT 98
[2024-12-13 08:05] VITALS: BP 131/79; PULSE 99; RESP 18; TEMP 98.1; O2SAT 97
== END 2024-12-13 08:03 | disposition home or self-care (01) | DRG 540 ==
LOC: LDRP 04:10 → OBSVTOIN 04:10 → LDRP 09:45
PROVIDERS: ADMIT Obstetrics & Gynecology; ATTEND Obstetrics & Gynecology
PROC: 0DNU0ZZ Release Omentum, Open Approach (ICD-10-PCS; 2024-12-11)
PROC: 10D00Z1 Extraction of Products of Conception, Low, Open Approach (ICD-10-PCS; principal; 2024-12-11 07:30)
DX: O14.04 Mild to moderate pre-eclampsia, complicating childbirth (principal); O90.49 Other postpartum acute kidney failure; E66.813 Obesity, class 3; O34.211 Maternal care for low transverse scar from previous cesarean delivery; Z37.0 Single live birth; O99.214 Obesity complicating childbirth; Z3A.37 37 weeks gestation of pregnancy; O99.62 Diseases of the digestive system complicating childbirth; K66.0 Peritoneal adhesions (postprocedural) (postinfection)
CPT/HCPCS: 36415; 80053; 80307; 81001; 82570; 82948; 84300; 85025; 85610; 85730; 86780; 86803; 86850; 86900; 86901; 94760; 94762; 96360; 96361; 96365; 96366; 96374; G0378; J0131; J1885; J2405; J2590; J3490